=== PATIENT | female | born 1955 | race Asian ===

== ENCOUNTER → 2018-10-17 12:50 | Outpatient (CLI) | payer OTHER, SELFPAY ==
--- NOTE | 2018-10-17 | DI.MRI.S_ITS ---
PROCEDURE: MR SHOULDER RT WO CON INDICATIONS: ACUTE PAIN OF RIGHT SHOULDER TECHNIQUE: Noncontrast oblique coronal T2 fast spin echo with fat saturation, oblique sagittal T1 spin echo and T2 fast spin echo with fat saturation, axial T1 spin echo and T2 fast spin echo with fat saturation through the shoulder. COMPARISON: [facility] [place], [place], XR SHOULDER 2+ VIEWS RIGHT, 09/26/2018, 14:05. FINDINGS: Image quality: Excellent. Rotator cuff: The supraspinatus, infraspinatus, and subscapularis tendons appear free of disruption throughout but there is tendinosis involving the lateral supraspinatus portion of the rotator cuff where edema within the supraspinatus tendon can be seen indicating likelihood of a chronic impingement being present secondary to the inferior tilt of the lateral acromion and fibrous and osseous hypertrophy along the inferior margin of the a.c. joint which is moderately degenerated. Sagittal images demonstrate no muscle atrophy. Bones and bursae: No bone marrow contusions or fractures. There is moderate acromioclavicular joint degeneration as noted above, but no recent trauma in this area is suspected. A moderate glenohumeral joint osteoarthritis also is present.. The acromion demonstrates conventional anatomy, without an os acromiale. No pathologic subacromial-subdeltoid or subcoracoid bursal fluid is present. Capsule and soft tissues: In the absence of intra-articular contrast, the labrum and glenohumeral ligaments appear intact. The long head of the biceps tendon demonstrates normal location and morphology. The rotator interval appears normal, without fibrosis. The coracohumeral ligament is normal in thickness. 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 The supraspinatus tendon is thickened and mildly edematous laterally, but not disrupted. The degree of osteoarthritis at the glenohumeral joint is moderate. Dictated by: Juan Lincoln M.D. on 10/17/2018 at 15:28 Approved by: Juan Lincoln M.D. on 10/17/2018 at 15:31
== END ==
PROVIDERS: PCP Anesthesiology Pain Medicine; Visit Provider Orthopaedic Surgery
DX: M25.511 Pain in right shoulder (principal)
CPT/HCPCS: 73221